=== PATIENT | male | born 1960 | race Caucasian/White ===

== ENCOUNTER 2018-01-26 09:00 | Inpatient (IN) | payer BC ==
[2018-02-01] MEDS ORDERED: FAMOTIDINE 20MG TABLET PO ONE ×2 (06:00→15:17)
[2018-02-01] MEDS ORDERED: MECLIZINE 25 MG TABLET PO ONE (06:00)
[2018-02-01] MEDS ORDERED: CELECOXIB 100 MG CAPSULE PO ONE (06:00)
[2018-02-01] MEDS ORDERED: METOCLOPRAMIDE 10 MG TABLET PO ONE (06:00)
[2018-02-01] MEDS ORDERED: CEFAZOLIN 2 Gram 2 GM/50 ML BAG IVPB ONE (06:00)
[2018-02-01] MEDS ORDERED: ACETAMINOPHEN 1,000 MG/100 ML BTL IV ONE (06:00)
[2018-02-01] MEDS ORDERED: RINGERS SOLUTION,LACTATED 1,000 ML IV PRN (10:40)
[2018-02-01] MEDS ORDERED: SENNOSIDES/DOCUSATE SODIUM UD CAPSULE PO PRN (11:00)
[2018-02-01] MEDS ORDERED: ZOLPIDEM TARTRATE 5 MG TABLET PO PRN (11:00)
[2018-02-01] MEDS ORDERED: METOCLOPRAMIDE HCL 10 MG/2 ML VIAL IVP PRN (11:00)
[2018-02-01] MEDS ORDERED: DIPHENHYDRAMINE HCL 25 MG CAPSULE PO PRN (11:00)
[2018-02-01] MEDS ORDERED: ONDANSETRON HCL IV 4 MG/2 ML VIAL IVP PRN (11:00)
[2018-02-01] MEDS ORDERED: AL HYDROX/MAG HYDROX 30ML UD PO PRN (11:00)
[2018-02-01] MEDS ORDERED: MAGNESIUM HYDROXIDE 30 ML UDC PO PRN (11:00)
[2018-02-01] MEDS ORDERED: OXYCODONE HCL 5 MG TABLET PO PRN (11:03)
[2018-02-01] MEDS: OXYCODONE HCL 5 MG TABLET PO PRN ×3 (11:28→19:56)
[2018-02-01] MEDS ORDERED: TRANEXAMIC ACID 1,000 MG in 0.9 % SODIUM CHLORIDE 100ML 100 ML IVPB ONE (12:00)
[2018-02-01] MEDS: ACETAMINOPHEN 1,000 MG/100 ML BTL IV SCH ×2 (13:21→20:14)
[2018-02-01] MEDS: HYDROMORPHONE HCL 2 MG/ML VIAL IV PRN ×2 (13:50→23:30)
[2018-02-01] MEDS ORDERED: DEXAMETHASONE 4 MG/ML 1ML VIAL IVP ONE (15:17)
[2018-02-01] MEDS ORDERED: ROPIVACAINE HCL (NAROPIN) /PF 5MG/ML 20ML VIAL IV ONE (15:17)
[2018-02-01] MEDS ORDERED: BUPIVACAINE 0.5% W/EPI MPF 30 ML VIAL IVP ONE (15:27)
[2018-02-01] MEDS ORDERED: TRANEXAMIC ACID 1,000 MG/10 ML ML IV ONE (15:27)
--- NOTE | 2018-02-01 16:10 | Rehab Evaluation ---
Patient Information - Patient Information Diagnosis: Left Knee OA Ordered Treatment: PT Evaluate and Treat Status: Initial Evaluation Surgery: Yes (L TKA) Date of Surgery: 02/01/18 History: Detail (Pt. reports history of degenrative changes left knee.) Past Med/Tonia Hx Detail: Detail (Pt. reports h/o contralateral TKA. Please see additional medical forms for PMH.) Past Medical/Surgical Hx: PAST MEDICAL/SURGICAL HISTORY Past Surgical History RT knee scope 06; umbilical hernia repair; right total knee 2015. PMH - Respiratory Hx Respiratory Disorders Yes Hx Asthma allergies Hx Bronchitis Yes: x 6 over life time Comment: On singulair and allergy shots related to allergies to pollen and mold PMH - Cardiovascular Hx Cardiovascular Disorders Yes Hx Hypertension Yes Exercise Tolerance Fair Comment: Limitations based on right knee pain PMH - Neuro Hx Neurological Disorders Yes Hx Headaches Yes: Occ sinus headaches r/t allergies PMH - GI Hx Gastrointestinal Disorders Yes Hx Gastroesophageal Reflux Yes: Controlled mostly with protonix Hx Nausea/Vomiting Yes: sinus drainage causes nausea at times Hx Weight Loss/Weight Gain Yes: lost 8-10 lbs over last 4 mos Comment: hx of umbilical hernia repair PMH - Hx Genitourinary Disorders Yes Hx Kidney Stones Yes: has had x 4, just one surgery, passed rest PMH - Endocrine Hx Endocrine Disorders Yes Hx Diabetes Yes Hx Thyroid Disease Yes Hx of NIDDM Yes Comment: last accucheck 110/ last A1C6.7 PMH - Musculoskeletal Hx Musculoskeletal Disorders Yes Hx Arthritis Yes: right knee and in fingers PMH - Psych Hx Psychiatric Problems No PMH - Hematology/Oncology Hx Hematology/Oncology No Disorders Premorbid Status: Detail (Worsening degenerative changes.) Social History: Detail (Pt. lives alone in a single story home. 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 Pt. has standard walker, single point cane, shower bench and axillary crutches at home. Pt. has one step in the home following added room, otherwise no steps to enter or exit the home. Pt. has family/ friends who live nearby that will be able to provide support.) Precautions: [place], Fall - Time With Patient Total Time Spent With Patient (Min): 90 Treatment Procedures: Detail (Physical Therapy Evaluation Completed. Pt. was left supine with call light available, tray in reach, B IPC, cryo LLE, nursing was notified of pt.'s status and need for new CPM due to his current unit not turning on.) Subjective Information - Subjective Information Per Patient ( Pt. was found supine and pleasant to begin evaluation. Pt. reported 4/10 pain to begin evaluation. Pt. denied SOB and nausea. Pt. had feeling of his toes to start. Pt. was A&O x4.) Objective Data - Pain Pain Present: Yes Pain Scale Used: Numeric (1 - 10) (4/10) - Mental Status Patient Orientation: Oriented x3 - Visual Perception Appears within normal limits for therapeutic activities - ROM Not within normal limits (Left knee flexion and extension set at 60 degrees and 0 degrees, respectively, with pt. on CPM. Left knee flexion and extension ROM not formally tested secdondary to surgery this a.m. RLE WFL all planes. BUE WFL all planes.) - Strength/Tone Not within normal limits (Left knee flexion and extension not formally tested secondary to TKA earlier this a.m. RLE was WFL grossly. BUE 5/5 grossly without pain.) - Coordination Appears within normal limits for therapeutic activities - Bed Mobility Needs Assist (Pt. required moderate assistance x1 with bed mobiliy. Pt. required hooking with RLE to advance the surgical leg in bed. Pt. unable to bridge and required use of trapeeze to position operative LE onto CPM.) - Transfers Independent (Pt. was independent with sit to stand and stand to sit transfer.) - Balance Balance Sitting: Good Balance Standing: Fair (Pt. exhibited loss of midline positioning while upright with walker when assessing patient for standing balance.) - Sensation Intact - Gait Detail (Pt. ambulated with CGA and standard walker (~10 feet) to bathroom and back.) - ADL's/IADL's Detail (Pt. was successful with void attempt while standing next to toilet. Nursing was notified of pt.'s void attempt and need for dressing changes following use of bathroom. Pt.'s right APRIL hose was doffed and nursing was notified regarding the compressive stocking being soiled.) - Special Tests Yes (Negative Jean Paul's, left.) Therapy Assessment - Therapy Assessment Detail (Pt. exhibits good understanding of precautions, joint positioning, transfers, and risk factors considering he has had his right knee replaced. Pt. exhibits left knee ROM deficits and weakness following TKA. Pt. is a good candidate to meet inpatient PT goals and transition to home environment.) Patient Education - Patient Education Teaching Topic: Community Resources, Equipment Use, Precautions Teaching Method: Discussion Teaching Recipient: Patient Barriers To Learning: None Problem List - Problem List Physical Therapy Problem List: Detail (1) LE Weakness 2) LE ROM restriction 3) Pt. not independent with bed mobility 4) Pt. not assessed for ambulation over step 5) Balance impairment) Goals - Goals Physical Therapy Goals: 1) Pt. will be independent with bed mobility. 2) Pt. will verbalize good understanding of his HEP. 3) Pt. will ambulate over 1 step appropriately with his AD. 4) Pt. will verbalize good understanding of signs of infection/precautions. 5) Pt. will exhibit proper gait mechanics with walker household distances. Prognosis - Prognosis Good (Pt. is expeted to pass inpatient PT in 1-2 days and safely transition to home environment and continue PT for OP PT services.) Plan - Plan Physical Therapy Plan: Pt. is to be seen 1-2 times per day for inpatient PT until goals met for safe D/C to home environment.
[2018-02-01] MEDS: CEFAZOLIN 1 Gram 1 GM/50 ML BAG IVPB SCH ×2 (16:20→16:54)
[2018-02-01] MEDS: PATIENT OWN MED: METFORMIN 500 MG PO SCH (17:33)
[2018-02-01] MEDS: ASPIRIN 325 MG TAB ENTERIC-COATED PO SCH (21:03)
[2018-02-02] MEDS: CEFAZOLIN 1 Gram 1 GM/50 ML BAG IVPB SCH ×4 (00:17→08:31)
[2018-02-02] MEDS: ACETAMINOPHEN 1,000 MG/100 ML BTL IV SCH (01:25)
[2018-02-02] MEDS: OXYCODONE HCL 5 MG TABLET PO PRN ×2 (03:18→07:45)
[2018-02-02] MEDS: HYDROMORPHONE HCL 2 MG/ML VIAL IV PRN (05:48)
[2018-02-02] MEDS ORDERED: GLIMEPIRIDE 2 MG PO SCH (07:00)
[2018-02-02] MEDS ORDERED: PATIENT OWN MED: LEVOTHYROXINE 50 MCG PO SCH (07:00)
[2018-02-02] MEDS ORDERED: PATIENT OWN MED: PANTOPRAZOLE 40 MG PO SCH (07:00)
[2018-02-02] MEDS: PATIENT OWN MED: METFORMIN 500 MG PO SCH (07:42)
[2018-02-02] MEDS ORDERED: MIDAZOLAM HCL 2MG/2ML VIAL IV ONE (08:58)
[2018-02-02] MEDS ORDERED: FENTANYL PF 100MCG/2ML VIAL IV ONE (08:58)
[2018-02-02] MEDS ORDERED: PROPOFOL 10 MG/ML VIAL IV ONE (08:58)
[2018-02-02] MEDS ORDERED: EPHEDRINE SULFATE 50 MG/ML ML IV ONE (08:58)
[2018-02-02] MEDS ORDERED: LIDOCAINE 2% MDV (20MG/ML) 20ML VIAL IV ONE (08:58)
[2018-02-02] MEDS ORDERED: ONDANSETRON HCL IV 4 MG/2 ML VIAL IVP ONE (08:58)
[2018-02-02] MEDS: ASPIRIN 325 MG TAB ENTERIC-COATED PO SCH (09:03)
--- NOTE | 2018-02-02 09:34 | Rehab Evaluation ---
Patient Information - Patient Information Diagnosis: Left Knee OA Ordered Treatment: OT Evaluate and Treat Status: Initial Evaluation Surgery: Yes (L TKA) Date of Surgery: 02/01/18 History: Detail (Pt. reports history of degenrative changes left knee.) Past Med/Tonia Hx Detail: Detail (Pt. reports h/o contralateral TKA. Please see additional medical forms for PMH.) Past Medical/Surgical Hx: PAST MEDICAL/SURGICAL HISTORY Past Surgical History RT knee scope ; umbilical hernia repair; right total knee 2015. PMH - Respiratory Hx Respiratory Disorders Yes Hx Asthma allergies Hx Bronchitis Yes: x 6 over life time Comment: On singulair and allergy shots related to allergies to pollen and mold PMH - Cardiovascular Hx Cardiovascular Disorders Yes Hx Hypertension Yes Exercise Tolerance Fair Comment: Limitations based on right knee pain PMH - Neuro Hx Neurological Disorders Yes Hx Headaches Yes: Occ sinus headaches r/t allergies PMH - GI Hx Gastrointestinal Disorders Yes Hx Gastroesophageal Reflux Yes: Controlled mostly with protonix Hx Nausea/Vomiting Yes: sinus drainage causes nausea at times Hx Weight Loss/Weight Gain Yes: lost 8-10 lbs over last 4 mos Comment: hx of umbilical hernia repair PMH - Hx Genitourinary Disorders Yes Hx Kidney Stones Yes: has had x 4, just one surgery, passed rest PMH - Endocrine Hx Endocrine Disorders Yes Hx Diabetes Yes Hx Thyroid Disease Yes Hx of NIDDM Yes Comment: last accucheck 110/ last A1C6.7 PMH - Musculoskeletal Hx Musculoskeletal Disorders Yes Hx Arthritis Yes: right knee and in fingers PMH - Psych Hx Psychiatric Problems No PMH - Hematology/Oncology Hx Hematology/Oncology No Disorders Premorbid Status: Detail (Worsening degenerative changes. Pt was independent with all ADLs [employer] and was working 7 days a week.) Social History: Detail (Pt. lives alone in a single story home. 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 Pt. has standard walker, single point cane, shower bench and axillary crutches at home. Pt. has one step in the home following added room, otherwise no steps to enter or exit the home. Pt. has family/ friends who live nearby that will be able to provide support.) Precautions: [place], Fall - Time With Patient Total Time Spent With Patient (Min): 30 Treatment Procedures: Detail (OT evaluation, modified drsg technique training) Subjective Information - Subjective Information Per Patient (Pt reports that he is worried about returning home secondary to living alone and having to handle 1 step inside his home to let his 2 dogs out. He wants to feel completely confident that he can handle stairs before d/c home. ) Objective Data - Pain Pain Present: Yes Pain Intensity: 4 (L knee) Pain Scale Used: Numeric (1 - 10) (Pt's pain increased to 8/10 w/ shoe don activity.) - Mental Status Patient Orientation: Oriented x3 - Visual Perception Appears within normal limits for therapeutic activities - ROM Within normal limits (BUE's) - Strength/Tone Within normal limits (BUE's) - Coordination Appears within normal limits for therapeutic activities - Bed Mobility Independent (Pt able to move supine to SS EOB without use of trapeze or gaurd rail and completely independently using R LE hooked around left.) - Transfers Independent (Independent with sit<>stand t/f's using 2WW for support) - Balance Balance Sitting: Good - ADL's/IADL's Detail (Patient is familiar with all modified drsg techniques secondray to having a R TKA in 2005 and able to verbalize understanding. Pt independent with gown doff, SS shirt don, pants don, and shoe don. Pain did increase to 8/10 with shoe don but patient states that he remembers this happening when he had his R TKA. Pt has all necessary equipment needed at home including a prime minister. He was concerned about having to don compression stockings independently at home and we discussed equipment that could make this easier if this is an issue while at home. Feel confident pt will be able to do this as long as pain is under control.) Therapy Assessment - Therapy Assessment Detail (Pt demonstrated safe and independent drsg as well as is able to verbalize steps of modified drsg. Do not feel further inpatient OT is needed at this time.) Patient Education - Patient Education Teaching Topic: Other (Modified drsg technique) Response: Return Demonstration, Verbalize Understanding Teaching Recipient: Patient Barriers To Learning: None Problem List - Problem List Physical Therapy Problem List: Detail (1) LE Weakness 2) LE ROM restriction 3) Pt. not independent with bed mobility 4) Pt. not assessed for ambulation over step 5) Balance impairment) Goals - Goals Physical Therapy Goals: 1) Pt. will be independent with bed mobility. 2) Pt. will verbalize good understanding of his HEP. 3) Pt. will ambulate over 1 step appropriately with his AD. 4) Pt. will verbalize good understanding of signs of infection/precautions. 5) Pt. will exhibit proper gait mechanics with walker household distances. Prognosis - Prognosis Good Plan - Plan Physical Therapy Plan: Pt. is to be seen 1-2 times per day for inpatient PT until goals met for safe D/C to home environment. Occupational Therapy Plan: No further inpatient OT needed at this time.
--- NOTE | 2018-02-02 09:49 | Rehab Evaluation ---
Patient Information - Patient Information Diagnosis: Left Knee OA Ordered Treatment: PT Evaluate and Treat Status: Initial Evaluation Surgery: Yes (L TKA) Date of Surgery: 02/01/18 History: Detail (Pt. reports history of degenrative changes left knee.) Past Med/Tonia Hx Detail: Detail (Pt. reports h/o contralateral TKA. Please see additional medical forms for PMH.) Past Medical/Surgical Hx: PAST MEDICAL/SURGICAL HISTORY Past Surgical History RT knee scope 06; umbilical hernia repair; right total knee 2015. PMH - Respiratory Hx Respiratory Disorders Yes Hx Asthma allergies Hx Bronchitis Yes: x 6 over life time Comment: On singulair and allergy shots related to allergies to pollen and mold PMH - Cardiovascular Hx Cardiovascular Disorders Yes Hx Hypertension Yes Exercise Tolerance Fair Comment: Limitations based on right knee pain PMH - Neuro Hx Neurological Disorders Yes Hx Headaches Yes: Occ sinus headaches r/t allergies PMH - GI Hx Gastrointestinal Disorders Yes Hx Gastroesophageal Reflux Yes: Controlled mostly with protonix Hx Nausea/Vomiting Yes: sinus drainage causes nausea at times Hx Weight Loss/Weight Gain Yes: lost 8-10 lbs over last 4 mos Comment: hx of umbilical hernia repair PMH - Hx Genitourinary Disorders Yes Hx Kidney Stones Yes: has had x 4, just one surgery, passed rest PMH - Endocrine Hx Endocrine Disorders Yes Hx Diabetes Yes Hx Thyroid Disease Yes Hx of NIDDM Yes Comment: last accucheck 110/ last A1C6.7 PMH - Musculoskeletal Hx Musculoskeletal Disorders Yes Hx Arthritis Yes: right knee and in fingers PMH - Psych Hx Psychiatric Problems No PMH - Hematology/Oncology Hx Hematology/Oncology No Disorders Premorbid Status: Detail (Worsening degenerative changes. Pt was independent with all ADLs [employer] and was working 7 days a week.) Social History: Detail (Pt. lives alone in a single story home. 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 Pt. has standard walker, single point cane, shower bench and axillary crutches at home. Pt. has one step in the home following added room, otherwise no steps to enter or exit the home. Pt. has family/ friends who live nearby that will be able to provide support.) Precautions: [place], Fall, Other (WBAT on L LE.) - Time With Patient Total Time Spent With Patient (Min): 30 Treatment Procedures: Detail (Initial evaluation, gait training, stair training , and exercise education) Subjective Information - Subjective Information Per Patient (Patient was lying supine in bed upon arrival with complaints of 6/ 10 pain in his left knee.) Objective Data - Pain Pain Present: Yes Pain Intensity: 6 (Pain level was reported at 8/10 after ambulating.) Pain Scale Used: Numeric (1 - 10) - Mental Status Patient Orientation: Oriented x3 - Visual Perception Appears within normal limits for therapeutic activities - ROM Not within normal limits (L knee ROM limited due to status post-surgery.) - Strength/Tone Not within normal limits (Functional strength during ambulation, but limited due to status post-surgery. Patient was not able to complete SLR with L LE, and had difficulty isolating the quads during quad sets on the L LE.) - Bed Mobility Independent (Patient was IND with supine to and from sit transfer.) - Transfers Independent (Patient was IND with sit to and from stand transfers.) - Balance Balance Sitting: Good Balance Standing: Fair - Sensation Intact - Gait Detail (Patient ambulated 75' using a standard walker and SBA for safety. Patient is WBAT on L LE, but was demonstrating a toe touch gait pattern with his L LE.) Therapy Assessment - Therapy Assessment Detail (Patient was IND with all bed mobility and transfers with supervision for safety. Feel patient will progress well with mobility with continued PT.) Patient Education - Patient Education Teaching Topic: Exercise/Activity (Ankle pumps, heel slides, quad sets ( difficulty isolating quads), hamstring sets, glut sets, and SLR (not able to complete)) Response: Return Demonstration, Verbalize Understanding Teaching Method: Demonstration, Audiovisual Teaching Recipient: Patient Barriers To Learning: Age Related Problem List - Problem List Physical Therapy Problem List: Detail (1) LE Weakness 2) LE ROM restriction 3) Pt. not independent with bed mobility 4) Pt. not assessed for ambulation over step 5) Balance impairment) Goals - Goals Physical Therapy Goals: 1) Pt. will be independent with bed mobility. 2) Pt. will verbalize good understanding of his HEP. 3) Pt. will ambulate over 1 step appropriately with his AD. 4) Pt. will verbalize good understanding of signs of infection/precautions. 5) Pt. will exhibit proper gait mechanics with walker household distances. Plan - Plan Physical Therapy Plan: Pt. is to be seen 1-2 times per day for inpatient PT until goals met for safe D/C to home environment. Occupational Therapy Plan: No further inpatient OT needed at this time.
[2018-02-02] MEDS ORDERED: PATIENT OWN MED: LISINOPRIL 5 MG PO SCH (10:00)
[2018-02-02] MEDS ORDERED: PATIENT OWN MED: CETIRIZINE 10 MG PO SCH (10:00)
[2018-02-02] MEDS ORDERED: CELECOXIB 100 MG CAPSULE PO SCH (10:00)
[2018-02-02] MEDS ORDERED: PATIENT OWN MED: MONTELUKAST 10 MG PO SCH (10:00)
--- NOTE | 2018-02-02 10:00 | Physical Therapy Tx Note ---
Physical Therapy Tx Note - Treatment Note Tolerated: Good Total Time Spent With Patient: 30 Physical Therapy Tx Note: Detail (Patient was supine in bed upon arrival with complaints of 6/10 pain in his L knee. Patient was IND with bed mobility and sit to stand transfers. Patient ambulated 75' using a standard walker and SBA for safety. Patient ambulated a flight of 3 stairs using a folded walker, hand rail and SBA for safety. Patient required verbal cues for stair technique. Patient reported 8/10 after ambulation. Patient was educated on HEP including ankle pumps, quad sets, glut sets, hamstring sets, SLR, and heel slides. Patient was unable to perfomr SLR with his L LE, and was educated on modified technique. Patient also had diffuculty isolating the quads during quad sets on his L LE.) Physical Therapy Problem List: Detail (1) LE Weakness 2) LE ROM restriction 3) Pt. not independent with bed mobility 4) Pt. not assessed for ambulation over step 5) Balance impairment) Physical Therapy Goals: 1) Pt. will be independent with bed mobility. (Goal Met) . 2) Pt. will verbalize good understanding of his HEP. (Goal Met). 3) Pt. will ambulate over 1 step appropriately with his AD. (Goal Met). 4) Pt. will verbalize good understanding of signs of infection/precautions. (Goal Met). 5) Pt. will exhibit proper gait mechanics with walker household distances. (Goal Met) Prognosis: Good Physical Therapy Plan: Patient has met all IP PT goals. Patient will be seen 1 more time this afternoon to review HEP. Patient will then be discharged to home PT.
[2018-02-02] MEDS: OXYCODONE HCL/APAP 5MG/325MG TABLET PO PRN ×2 (10:03→14:45)
[2018-02-02] MEDS ORDERED: ACETAMINOPHEN 325 MG TAB PO PRN (11:00)
[2018-02-02] MEDS ORDERED: OXYCODONE HCL/APAP 5MG/325MG TABLET PO PRN (11:03)
--- NOTE | 2018-02-02 13:17 | Physical Therapy Tx Note ---
Physical Therapy Tx Note - Treatment Note Tolerated: Good Total Time Spent With Patient: 15 Physical Therapy Tx Note: Detail (Patient was lying supine in bed upon arrival, stating he is feeling better. HEP was reviewed with patient, and demonstration was provided for modified exercises. Patient was left lying supine in bed with call light in reach.) Physical Therapy Problem List: Detail (1) LE Weakness 2) LE ROM restriction 3) Pt. not independent with bed mobility 4) Pt. not assessed for ambulation over step 5) Balance impairment) Physical Therapy Goals: 1) Pt. will be independent with bed mobility. (Goal Met) . 2) Pt. will verbalize good understanding of his HEP. (Goal Met). 3) Pt. will ambulate over 1 step appropriately with his AD. (Goal Met). 4) Pt. will verbalize good understanding of signs of infection/precautions. (Goal Met). 5) Pt. will exhibit proper gait mechanics with walker household distances. (Goal Met) Prognosis: Good Physical Therapy Plan: Patient has met all IP PT goals.Patient will be discharged to OP PT.
--- NOTE | 2018-02-07 09:01 | Operative Note ---
DATE OF SERVICE: 02/01/2018. DATE OF SURGERY: 02/01/2018. Surgeon: Aman Bray DO. REFERRING PHYSICIAN: Braden Weeks MD. PREOPERATIVE DIAGNOSIS: Primary osteoarthritis of the left knee. POSTOPERATIVE DIAGNOSIS: Primary osteoarthritis of the left knee. OPERATION: Left total knee arthroplasty. PROCEDURE: This 57-year-old male was taken to the operating room and placed in the supine position on the operating room table. Spinal anesthesia was induced by the Department of Anesthesia. The left lower extremity was then elevated. It was prepped with Hibiclens and draped in the usual sterile fashion, exsanguinated, and the tourniquet inflated to 300 mmHg. All scrub personnel wore personal isolation suits. An anterior longitudinal midline incision was made, followed by a medial parapatellar arthrotomy incision. An intercondylar drill hole was made for the intramedullary alignment francis and a 9 mm, 6 degree valgus cut was made in the distal femur, and the wafers of bone were removed. The sizing jig was fixed. A size 65 seemed to be the appropriate size. The 4-in-1 cutting block was then pinned in 3 degrees of external rotation. Appropriate cuts were made. We then directed our attention to the proximal tibia, and the extramedullary alignment guide was used to cut the proximal tibia, referencing first a 10 and then a 12 mm cut measured off of the lateral tibial plateau, the additional 2 mm necessary to get below the subchondral bone on the medial tibial plateau. Once the 3 degree posterior slope cut was made, the wafer of bone was removed. The remnants of the menisci and osteophytes were removed from the posterior aspect of the joint. The tibia was sized to a size 71, and the stem punch was used. The wound was copiously irrigated with pulse lavage lactated Ringer solution. Trial components were inserted, first a 10 mm bearing, followed by an 11 mm bearing, which gave us a better fit with full extension, excellent stability throughout the range of motion. The patella was cut and restored to anatomic height with a 35 x 8.6 mm trial that also tracked normally with no evidence of instability. All trial components were then removed and the wound again copiously irrigated with pulse lavage lactated Ringer solution. Exparel was injected into the posterior medial and lateral corners of the joint. All bony surfaces were dried, and all components were cemented, and excess cement was removed after the insertion of each component. Initially the tibial baseplate was placed, followed by the tibial bearing, the femoral component, and finally the patella. Once the cement had hardened, the knee was again taken through a range of motion and found to be stable. The remainder of the Exparel was injected into the periosteum and joint capsule of the proximal tibia and distal femur. Prior to that, the wound had been again copiously irrigated with lactated Ringer solution. The arthrotomy incision was closed with #2 Vicryl, the subcutaneous tissue closed with 0 Vicryl. The skin was stapled. Sterile dressings with Polar Care were applied, and the patient was taken to the recovery room in satisfactory condition. Gross pathology: This patient demonstrated full thickness articular cartilage loss in the medial compartment, including both the medial femoral condyle and the medial tibial plateau. The medial facet of the patella also demonstrated full thickness defect. The lateral compartment showing grade 2 changes. Final components inserted were a [employer] Vanguard size 65 cruciate-retaining femur, a size 71 tibial baseplate, an 11 mm anterior stabilized bearing, and a 34 x 8.6 mm patella was used. CAMERON
--- NOTE | 2018-02-07 09:30 | Discharge Summary ---
DATE OF ADMISSION: 02/01/2018 DATE OF DISCHARGE: 02/02/2018 ADMITTING DIAGNOSIS: Osteoarthritis of the left knee. DISCHARGE DIAGNOSIS: Osteoarthritis of the left knee. OPERATIVE PROCEDURE: Elective left total knee arthroplasty. DESCRIPTION: This 57-year-old male was taken to the operating room, placed in the supine position on the operating room table where general anesthetic was administered, and the left lower extremity was prepped and draped and total knee arthroplasty was performed without complication. A drain placed postoperatively which was removed prior to discharge. The patient did clear physical therapy, and pain was controlled with Percocet 5/325 one or two every 6 hours as necessary for pain. He will follow up in the office in 2 weeks for reevaluation and also take aspirin 325 mg b.i.d. for 2 weeks. Routine wound care instructions were given. Should he have any problems prior to being seen, he was instructed to call my office. CAMERON
== END 2018-02-02 15:15 | disposition home or self-care (01) | DRG 470 ==
LOC: MEDSURG 02-01 06:01 → SUR 02-01 06:01 → EDSTATUS 02-01 09:00 → MEDSURG 02-01 09:48 → SUR 02-01 09:48 → MEDSURG 02-01 13:59 → SUR 02-01 14:00 → MEDSURG 02-01 14:00 → SUR 02-01 14:37
PROVIDERS: ADMIT Orthopaedic Surgery; ATTEND Orthopaedic Surgery
PROC: 0SRD069 Replacement of Left Knee Joint with Oxidized Zirconium on Polyethylene Synthetic Substitute, Cemented, Open Approach (ICD-10-PCS; principal; 2018-02-01 08:00)
DX: M17.12 Unilateral primary osteoarthritis, left knee (principal); E11.9 Type 2 diabetes mellitus without complications; I10 Essential (primary) hypertension; E03.9 Hypothyroidism, unspecified; K21.9 Gastro-esophageal reflux disease without esophagitis
CPT/HCPCS: 76942; 97110; J2405